=== PATIENT | male | born 1980 | race Caucasian/White ===

== ENCOUNTER 2016-11-07 22:02 | Emergency (ER) | payer MEDICAID ==
[~2016-11-07] VITALS: Ht 177.8 cm; Wt 74.8 kg
[2016-11-07 22:12] VITALS: BP 144/103
[2016-11-07] MEDS ORDERED: HYDROCODONE/APAP 5/325MG 1 EACH TABLET ONE (22:47)
[2016-11-07] MEDS ORDERED: HYDROCODONE/APAP 5/325MG 1 EACH TABLET PO ONE (23:00)
== END 2016-11-07 23:42 | disposition home or self-care (01) ==
LOC: ER 22:05
DX: S92.515A Nondisplaced fracture of proximal phalanx of left lesser toe(s), initial encounter for closed fracture (principal); W22.03XA Walked into furniture, initial encounter; Y93.89 Activity, other specified; Y92.89 Other specified places as the place of occurrence of the external cause; Y99.8 Other external cause status
CPT/HCPCS: 73630-TC; A4606; Z7610